=== PATIENT | male | born 1980 ===

== ENCOUNTER 2023-06-10 09:48 | Emergency (ER) | payer OTHER ==
[2023-06-10] MEDS: Bacitracin Oint 1 GM U/D Packet TOP ONE (10:15)
== END 2023-06-10 10:26 ==
LOC: DL.ED 09:48
DX: T75.4XXA Electrocution, initial encounter; W86.8XXA Exposure to other electric current, initial encounter
CPT/HCPCS: 99282; 99283; A9270